=== PATIENT | female | born 1980 | race Caucasian/White ===

== ENCOUNTER 2024-10-11 15:51 | Emergency (ER) | payer MEDICAID ==
[~2024-10-11] VITALS: Ht 162.6 cm; Wt 49.0 kg
[2024-10-11] MEDS: ketorolac trometh 15mg/ml vial 15 MG/ML ML IM ONE (17:13)
--- NOTE | 2024-10-11 17:35 | RADIOLOGY REPORT ---
EXAM: DI SHOULDER, COMPLETE (MIN 2 VWS) REASON FOR EXAM: Pain in shoulder LEFT TECHNIQUE: Internally and externally rotated AP views of the left shoulder are submitted for review. COMPARISON: None FINDINGS: The bones demonstrate normal mineralization. There is no acute fracture or dislocation. The re is no widening of the acromioclavicular joint. The soft tissues are unremarkable. IMPRESSION: NORMAL STUDY.
--- NOTE | 2024-10-11 17:45 | Physician Documentation ---
History of Present Illness ~ Chief Complaint: Abscess Stated Complaint: TOOTH PAIN Time Seen by MD: 16:40 HPI 41-year-old female that presents to the emergency department for evaluation of tooth pain with a lump along her gumline x1 week. She reports significant pain in her mouth she believes due to several broken teeth. Patient has been able to get in to see a dentist. Patient also reports muscle soreness down her neck into her left shoulder. Believes that she may have injured her arm while moving boxes. She reports taking Tylenol and ibuprofen with some relief but has not taken any today. Medication Reconciliation Allergies: Coded Allergies: amoxicillin (Verified Allergy, Intermediate, RASH, 10/11/24) Review of Systems ROS As stated above in the HPI, otherwise all systems are reviewed and negative. Physical Exam Vital Signs: Temperature: 97.6, Source: Temporal, Heart Rate: 114, Respiratory Rate: 15, BP: 132/91, Pulse Oximetry: 99, Weight: 49.050 Oxygen Flow Rate: 0 Physical Exam VITALS: Reviewed and as above. GENERAL: Alert, no apparent distress. HEENT: Normocephalic, atraumatic, PERRL, EOMI, dry mucosa, no erythema, small area of erythema and swelling to lower jaw at the gum line. RESPIRATORY: Lungs clear, normal breath sounds, no respiratory distress. CHEST: No accessory muscle use, no retractions CV: Regular rate, rhythm, no edema, no murmur, No: JVD GI: Soft, non-tender, bowels sounds present, no rebound, guarding, or rigidity BACK: No CVA tenderness, or swelling MUSCULOSKELETAL No deformities, no edema, pain with exam to the left shoulder SKIN: Warm and dry, no rash NEURO: Oriented x4, No motor or sensory deficit PSYCH: Normal mood and affect, no agitation Progress Results/Orders Results/Orders Orders - LAUREN SCHMID [employer] Shoulder, Complete (Min 2 Vws) (10/11/24 16:58) Completed Orders - LAUREN SCHMID [employer] Shoulder, Complete (Min 2 Vws) (10/11/24 16:58) Ketorolac Trometh 15mg/Ml Vial (Toradol (10/11/24 16:55) Vital Signs 10/11/24 16:25 Temp 97.6 Pulse 114 Resp 15 B/P (MAP) 132/91 Pulse Ox 99 O2 Flow Rate 0 Medical Decision Making Findings Patient presents for dental pain due to suspected dental brittny. Patient not immunosuppressed, afebrile and well appearing with patent airway, have low suspicfion for deep space infection or any concern for airway compromise. Based on history, physical, and work up. No evidence of RPA, [employer]ITARIAN, Ludwigs angina, periapical abscess. Instructed patient to continue to treat pain with ibuprofen/acetaminophen until they see a dentist. Antibiotic where he suspected dental abscess. Patient discharged home and will follow up with dentist. Discussed return precautions for odontogenic infections and other dental pain emergencies. Differential Dx:Considerations: Include: Abscess, Bacteremia, Cellulitis, Erysipelas, Felon, Gas gangrene, Hidrademitis suppurativa, Impetigo, Lymphangitis, Osteromyelitis, Paronychia, Septicemia, Other Departure Disposition: HOME / SELF CARE / HOMELESS Impression: Primary Impression: Abscess Additional Impression Text Dental abscess Condition: Stable Discharge Instructions: Dental Abscess, [id number] Additional Instructions: Today you were evaluated in the emergency department for concern for dental abscess. Prescribed you a course of antibiotics but he is take them until they are done. Tylenol ibuprofen as needed for discomfort. Primary care provider and dentist. Return to the emergency department if you develop any worsening of her symptoms i.e. fevers, swelling in her neck or airway, or any additional concerns. Referrals: NO PRIMARY CARE PROVIDER (PCP) Prescriptions Clindamycin HCl (Cleocin HCl) 150 Mg Capsule 3 CAP PO Q8H for Dental abscess for 10 Days, #30 CAP Prov: LAUREN SCHMID 10/11/24 Education Educated: Patient Educated regarding: diagnosis, prognosis, need for follow up LAUREN SCHMID Oct 11, 2024 17:45
[2024-10-11 18:40] VITALS: BP 132/89; PULSE 86; RESP 16; TEMP 97.6; O2SAT 100
[2024-10-11] MEDS ORDERED: CLIN150C2 PO (18:41)
--- NOTE | 2024-10-12 07:03 | ELECTROCARDIOGRAPH REPORT ---
[facility] Test Date: 2024-10-11 Test Time: 16:36:27 Pat Name: MEGHAN GAUTHIER Department: EMERGENCY ROOM Patient ID: [id number] Room: Gender: F Recreation Officer: MARK : 1980 Requested By: NISHI EDWARDS Order Number: [id number] Reading MD: Dr. Rico Kincaid Measurements Intervals [place] Rate: 89 P: 59 MA: 100 QRS: 68 QRSD: 81 T: 23 QT: 355 QTc: 432 Interpretive Statements Sinus rhythm Short MA interval Electronically Signed On 10-12-2024 19:29:[address] Rico Kincaid Please click the below link to view image of tracing.
== END 2024-10-11 18:45 | disposition home or self-care (01) ==
LOC: ER 15:52
DX: K04.7 Periapical abscess without sinus (principal); M25.512 Pain in left shoulder; I49.9 Cardiac arrhythmia, unspecified; Z88.1 Allergy status to other antibiotic agents
CPT/HCPCS: 73030; 93005; 99283